=== PATIENT | male | born 1975 | race Caucasian/White ===

== ENCOUNTER → 2017-01-05 | Day surgery (SDC) | payer OTHER ==
[~2017-01-05] VITALS: Ht 188 cm; Wt 114.2 kg
[~2017-01-05] MED LIST: FLUT16SP NS; Lactated Ringer's 1,000 ML IV ONE; SUCR1ORA2 PO
[2017-01-05 06:11] VITALS: BP 129/80; PULSE 52; RESP 18; O2SAT 97
== END | disposition home or self-care (01) ==
LOC: SAS 05:39
PROVIDERS: ATTEND Student in an Organized Health Care Education/Training Program
DX: E21.3 Hyperparathyroidism, unspecified (principal); Z53.8 Procedure and treatment not carried out for other reasons